=== PATIENT | female | born 2000 | race Caucasian/White ===

== ENCOUNTER 2018-10-19 13:59 | Emergency (ER) | payer BC ==
--- NOTE | 2018-10-19 15:13 | UC ---
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 they called in a prescription for Bactron which she is to apply to her nares. she was not able to get the medication because the pharmacy is closed so she came here for another prescription from an open pharmacy. she denies any hx MRSA or acute illness. - History of Current Complaint Stated Complaint: NEEDS RX BACTROBAN Time Seen by Provider: 10/19/18 15:04 Hx Obtained From: Patient - Allergy/Home Medications Allergies/Adverse Reactions: Allergies Allergy/AdvReac Type Severity Reaction Status Date / Time No Known Allergies Allergy Verified 10/19/18 15:09 Home Medications: Home Medications Loratadine [Claritin 10 MG CAP] 10 mg PO DAILY 10/19/18 [History Confirmed 10/19] PMH/Surg Hx/FS Hx/Imm Hx - Additional Past Medical History Additional PMH: fibromyalgia Cardiovascular History: Cardiac Disease - "my valves don't work right" - Surgical History Surgical History: None - Family History Known Family History: Positive: Non-Contributory - Social History Substance Use Type: None - Immunization History Vaccination Up to Date: Yes Review of Systems All Other Systems Reviewed And Are Negative: No Constitutional: Negative: Fever Skin: Negative: Rash Respiratory: Negative: Shortness Of Breath Cardiovascular: Negative: Chest Pain Musculoskeletal: Positive: Myalgia - chronic, fibromyalgia Physical Exam Triage Information Reviewed: Yes Vital Signs Reviewed: Yes Eyes: Positive: Conjunctiva Clear Neck: Positive: Supple Respiratory: Positive: Lungs clear Cardiovascular: Positive: RRR Abdomen Description: Positive: Nontender Musculoskeletal: Positive: ROM Intact Neurological: Positive: Alert Psychological: Positive: Age Appropriate Behavior Skin Exam: Normal Course/Dx - Diagnoses Provider Diagnosis: Medication refill Discharge - Sign-Out/Discharge Documenting (check all that apply): Patient Departure All imaging exams completed and their final reports reviewed: No Studies - Discharge Plan Condition: Stable Disposition: HOME Prescriptions: Mupirocin 2% OINT* [Bactroban 2 % Oint*] 1 applic TOPICAL BID 5 Days #1 tube Patient Education Materials: MRSA (Methicillin-Resistant Staphylococcus Aureus ) (ED) Referrals: Viridiana Francois NP [Primary Care Provider] - If Needed - Billing Disposition and Condition Condition: STABLE Disposition: Home
[2018-10-19 15:15] VITALS: BP 104/60
== END 2018-10-19 15:26 | disposition home or self-care (01) ==
LOC: UCCORT 13:59
DX: Z76.0 Encounter for issue of repeat prescription (principal); I38 Endocarditis, valve unspecified; M79.7 Fibromyalgia
CPT/HCPCS: 99202; G0463